=== PATIENT | male | born 1995 | race African-American/Black ===

== ENCOUNTER 2018-10-27 11:22 | Inpatient (IN) | payer SELFPAY ==
[~2018-10-27] VITALS: Ht 182.9 cm; Wt 75.0 kg
--- NOTE | 2018-10-27 11:52 | RAD ---
Portable upright chest x-ray without comparison for altered mental status. FINDINGS: Lungs are clear. Cardiomediastinum is grossly unremarkable. No significant soft tissue or osseous abnormalities. IMPRESSION: 1. Normal chest x-ray. Electronically signed by: Espinoza Mcdonough MD (10/27/2018 11:49 AM) [id number]
--- NOTE | 2018-10-27 12:00 | RAD ---
EXAM: Head CT without contrast. HISTORY: Altered mental status. TECHNIQUE: Computed tomographic images of the head were obtained without contrast. *One or more of the following individualized dose reduction techniques were utilized for this examination: 1. Automated exposure control. 2. Adjustment of the mA and/or kV according to patient size. 3. Use of iterative reconstruction technique. COMPARISON: None. FINDINGS: The exam is slightly limited due to motion. There is no acute or subacute extra-axial or intraparenchymal hemorrhage. There is no mass effect or midline shift. There is no hydrocephalus. The edge-white matter differentiation pattern is intact. The visualized portions of the orbits, paranasal sinuses and mastoid air cells are unremarkable. No suspicious calvarial lesion is seen. IMPRESSION: No acute intracranial findings. Electronically signed by: Neva Connelly MD (10/27/2018 11:57 AM) [place] [id number]
[2018-10-27] MEDS ORDERED: ZIPRASIDONE IM 20 MG VIAL. IM ONE (12:15)
--- NOTE | 2018-10-27 14:05 | PHYS DOC ---
Past Medical History Past Medical History: Unknown Additional Past Medical Histor: [place] Past Surgical History: Other Additional Past Surgical Histo: UNKNOWN Additional Information: UNKNOWN Alcohol Use: None Drug Use: Other Social History Narrative: UNKNOWN Adult General Chief Complaint Chief Complaint: ALTERED MENTAL STATUS HPI HPI Patient is a 22 year old male who presents with male with unknown medical history who presents to the ED today to be evaluated by EMS for altered mental status. EMS states they were called because patient was found walking on [address] [place] [address] in the rain he appeared altered. Patient is not giving us any information. He is awake and alert to self but will not give us his name or any further information. Review of Systems Review of Systems Constitutional: VAHE Eyes: VAHE HENT: VAHE Respiratory: VAHE Cardiovascular: VAHE GI: VAHE : VAHE Musculoskeletal:VAHE Integument: VAHE Neurologic: Altered mental status All other systems were reviewed and found to be within normal limits, except as documented in this note. Current Medications Current Medications Current Medications Medications (Trade) Dose Ordered Sig/Chu Start Time Stop Time Status Last Admin Dose Admin Ziprasidone (Geodon Im) 20 mg 1X ONCE 10/27/18 12:15 10/27/18 12:16 DC 10/27/18 12:18 20 MG Allergies Allergies Allergies Coded Allergies Type Severity Reaction Last Updated Verified Unable to Assess 10/27/18 No Physical Exam Physical Exam Constitutional: Well developed, well nourished, no acute distress, non-toxic appearance. [] HENT: Normocephalic, bilateral external ears normal, oropharynx moist, no oral exudates, nose normal. [] Eyes: PERRLA, EOMI, conjunctiva normal, no discharge. [] Neck: Normal range of motion, no tenderness, supple, no stridor. [] Cardiovascular:Heart rate regular rhythm, no murmur [] Lungs & Thorax: Bilateral breath sounds clear to auscultation [] Abdomen: Bowel sounds normal, soft, no tenderness, no masses, no pulsatile m asses. [] Skin: wet covered in rain water, no rash Back: No tenderness, Extremities: No tenderness, no cyanosis, no clubbing, ROM intact, no edema. [] Neurologic: Alert and oriented X 1, Psychologic: Flat appears to be intoxicated Current Patient Data Vital Signs Vital Signs Date Time Temp Pulse Resp B/P (MAP) Pulse Ox O2 Delivery O2 Flow Rate FiO2 10/27/18 11:22 97.0 68 18 153/74 (100) 97 Room Air 97.0 EKG EKG [address] Godwin sinus tachycardia HR 124 no STEMI[] Radiology/Procedures Radiology/Procedures [] Course & Med Decision Making Course & Med Decision Making Pertinent Labs and Imaging studies reviewed. (See chart for details) This is approximately 20-year-old male patient who presents the ED today to be evaluated for altered mental status. Patient will not give us his name or any further information. Patient was found walking in [facility] in the rain, and was alt ered. Patient became combative in the ED refusing care but stays confused and unsafe to go home, security was called, and he was given Geodon he calmed down and slept Consulted with Dr. Irwin who accepted patient for admission PAT routine consult placed. I spoke to mother, she stated patient has bipolar and he has voices. She stated patient has had psychotic symptoms for the last 3 weeks and needs to be sent to a psych facility. She stated patient is usually noncompliant a very had to work with especially when he is in the hospital. Member of the PAT team in the ED arranging for patient's care. Patient be admitted in the meantime Dragon Disclaimer Dragon Disclaimer This electronic medical record was generated, in whole or in part, using a voice recognition dictation system. Departure Departure Impression: Primary Impression: Altered mental status Additional Impression: Psychosis Disposition: ADMITTED INPATIENT Condition: STABLE Referrals: UNKNOWN PCP NAME (PCP) Problem Qualifiers Primary Impression: Altered mental status Altered mental status type: unspecified Qualified Codes: R41.82 - Altered mental status, unspecified Additional Impression: Psychosis Psychosis type: unspecified psychosis type Qualified Codes: F29 - Unspecified psychosis not due to a substance or known physiological condition AVANI CRAFT [employer]ICE [employer] Oct 27, 2018 14:05
[2018-10-27] MEDS ORDERED: ONDANSETRON PF 4 MG/2 ML VIAL. IV PRN (15:00)
[2018-10-27] MEDS ORDERED: HALOPERIDOL LACTATE 5 MG/ML VIAL. IVP ONE (17:00)
[2018-10-27 17:19] LABS: BILIRUBIN,URINE SMALL (NEG); CLARITY,URINE CLEAR; NITRITE,URINE NEGATIVE (NEG); PH,URINE 5.5; PROTEIN,URINE 30 mg/dL (NEG-TRACE)
[2018-10-27 17:33] LABS: BACTERIA,URINE 0 /HPF (0-FEW); COLOR,URINE DK YELLOW; HYALINE CASTS, URINE OCCASIONAL /HPF; RBC,URINE 0 /HPF (0-2); SQUAMOUS EPITHELIAL CELL,UR OCC /LPF; WBC,URINE 0 /HPF (0-4)
[2018-10-27 17:35] LABS: CALCIUM 10.2 mg/dL (8.5-10.1); CREATININE 1.3 mg/dL (0.7-1.3); GFR 84.3; POTASSIUM 5.4 mmol/L (3.5-5.1)
[2018-10-27 17:36] LABS: BARBITURATES NEG (NEG); BENZODIAZEPINES NEG (NEG); CANNABINOIDS POS (NEG); COCAINE NEG (NEG); METHADONE NEG (NEG); OPIATES NEG (NEG); PHENCYCLIDINE NEG (NEG)
[2018-10-27 17:38] LABS: ALBUMIN 5.1 g/dL (3.4-5.0); ALBUMIN/GLOBULIN RATIO 1.3 (1.0-1.7); TOTAL BILIRUBIN 3.4 mg/dL (0.2-1.0); TOTAL PROTEIN 9.1 g/dL (6.4-8.2)
[2018-10-27 17:39] LABS: ACETAMIN < 2 mcg/ml (10-30); ETHANOL < 10 mg/dL (0-10); SALIC < 2.8 mg/dL (2.8-20.0)
[2018-10-27 17:39] LABS: AMPHETAMINE/METHAMPHETAMINE NEG (NEG)
[2018-10-27 17:45] LABS: BASO % 0 % (0-3); EOS % 0 % (0-3); HEMATOCRIT 48.8 % (39.0-53.0); HEMOGLOBIN 16.3 g/dL (13.0-17.5); LYMPH # 2.4 x10^3/uL (1.0-4.8); LYMPH % 27 % (24-48); MEAN CORPUSCULAR HEMOGLOBIN 28 pg (25-35); MEAN CORPUSCULAR HGB CONC 33 g/dL (31-37); MEAN CORPUSCULAR VOLUME 83 fL (79-100); MONO # 0.9 x10^3/uL (0.0-1.1); MONO % 10 % (0-9); NEUT # 5.6 x10^3/uL (1.8-7.7); NEUT % 62 % (31-73); PLATELET COUNT 164 x10^3/uL (140-400); RED BLOOD COUNT 5.86 x10^6/uL (4.30-5.70); RED CELL DISTRIBUTION WIDTH 12.7 % (11.5-14.5); WHITE BLOOD COUNT 8.9 x10^3/uL (4.0-11.0)
--- NOTE | 2018-10-27 18:06 | NUR ---
Woody just arrived from ED via W/C w/ AMS. He is sleepingand has auditory hallucinations @ times. HAs not made any needs known.
[2018-10-27 18:34] VITALS: BP 119/79
--- NOTE | 2018-10-27 18:37 | PDOC1 ---
History and Physical Date of Admission Date of Admission DATE: 10/27/18 TIME: 18:34 Source Source: Unable to obtain due to History of Present Illness History of Present Illness Woody is a 22 year old male admit for acute confusion. Found by EMS, he didnt know where he is or who he was. He was Ted Sorenson for a feqw hours before his mother was found and discussed his PMH. EMS states they were called because patient was found walking on [address] [place] [address] in the rain he appeared altered. Patient is not giving us any information. He is awake and alert to self but will not give us his name or any further information. Past Medical History Cardiovascular: No pertinent hx Pulmonary: No pertinent hx Psych: Bipolar Social History Smoke: No ALCOHOL: none Current Problem List Problem List Problems Medical Problems: (1) Altered mental status Status: Acute (2) Psychosis Status: Acute Current Medications Current Medications Current Medications Ziprasidone (Geodon Im) 20 mg 1X ONCE IM Last administered on 10/27/18at 12:18; Start 10/27/18 at 12:15; Stop 10/27/18 at 12:16; Status DC Ondansetron HCl (Zofran) 4 mg PRN Q8HRS PRN IV NAUSEA/VOMITING; Start 10/27/18 at 15:00; Stop 10/28/18 at 14:59 Haloperidol Lactate (Haldol Inj) 5 mg 1X ONCE IVP Last administered on 10/27/18at 16:58; Start 10/27/18 at 17:00; Stop 10/27/18 at 17:01; Status DC Allergies Allergies: Coded Allergies: Unable to Assess (Unverified , 10/27/18) ROS Review of System unable, pt does not follow questions Physical Exam General: Alert, mild distress, Other (not oriented) HEENT: Atraumatic, PERRLA, EOMI Lungs: Normal air movement Heart: no gallops, no murmurs Extremities: No cyanosis, No edema Skin: No breakdown, No significant lesion Neuro: Normal tone, Sensation intact, Cranial nerves 3-12 NL Vitals Vitals Vital Signs Date Time Temp Pulse Resp B/P (MAP) Pulse Ox O2 Delivery O2 Flow Rate FiO2 10/27/18 17:00 112 18 99 10/27/18 14:58 97.8 97.8 10/27/18 11:22 153/74 (100) Room Air Labs Labs Laboratory Tests Test 10/27/18 16:59 10/27/18 17:11 10/27/18 17:35 Sodium Level 140 mmol/L (136-145) Potassium Level 5.4 mmol/L (3.5-5.1) Chloride Level 102 mmol/L (98-107) Carbon Dioxide Level 24 mmol/L (21-32) Anion Gap 14 (6-14) Blood Urea Nitrogen 14 mg/dL (8-26) Creatinine 1.3 mg/dL (0.7-1.3) Estimated GFR (Cockcroft-Gault) 84.3 BUN/Creatinine Ratio 11 (6-20) Glucose Level 76 mg/dL (70-99) Calcium Level 10.2 mg/dL (8.5-10.1) Magnesium Level 2.0 mg/dL (1.8-2.4) Total Bilirubin 3.4 mg/dL (0.2-1.0) Aspartate Amino Transf (AST/SGOT) 28 U/L (15-37) Alanine Aminotransferase (ALT/SGPT) 22 U/L (16-63) Alkaline Phosphatase 52 U/L (46-116) Total Protein 9.1 g/dL (6.4-8.2) Albumin 5.1 g/dL (3.4-5.0) Albumin/Globulin Ratio 1.3 (1.0-1.7) Salicylates Level < 2.8 mg/dL (2.8-20.0) Salicylate Last Dose Date Unk Salicylate Last Dose Time Unk Acetaminophen Level < 2 mcg/ml (10-30) Acetaminophen Last Dose Date Unk Acetaminophen Last Dose Time Unk Ethyl Alcohol Level < 10 mg/dL (0-10) Urine Collection Type Void Urine Color Dk yellow Urine Clarity Clear Urine pH 5.5 Urine Specific Meredith >=1.030 Urine Protein 30 mg/dL (NEG-TRACE) Urine Glucose (UA) Negative mg/dL (NEG) Urine Ketones (Stick) 15 mg/dL (NEG) Urine Blood Negative (NEG) Urine Nitrite Negative (NEG) Urine Bilirubin Small (NEG) Urine Urobilinogen Dipstick 1.0 mg/dL (0.2 mg/dL) Urine Leukocyte Esterase Negative (NEG) Urine RBC 0 /HPF (0-2) Urine WBC 0 /HPF (0-4) Urine Squamous Epithelial Cells Occ /LPF Urine Bacteria 0 /HPF (0-FEW) Urine Hyaline Casts Occasional /HPF Urine Mucus Marked /LPF Urine Opiates Screen Neg (NEG) Urine Methadone Screen Neg (NEG) Urine Barbiturates Neg (NEG) Urine Phencyclidine Screen Neg (NEG) Urine Amphetamine/Methamphetamine Neg (NEG) Urine Benzodiazepines Screen Neg (NEG) Urine Cocaine Screen Neg (NEG) Urine Cannabinoids Screen Pos (NEG) Urine Ethyl Alcohol Neg (NEG) White Blood Count 8.9 x10^3/uL (4.0-11.0) Red Blood Count 5.86 x10^6/uL (4.30-5.70) Hemoglobin 16.3 g/dL (13.0-17.5) Hematocrit 48.8 % (39.0-53.0) Mean Corpuscular Volume 83 fL (79-100) Mean Corpuscular Hemoglobin 28 pg (25-35) Mean Corpuscular Hemoglobin Concent 33 g/dL (31-37) Red Cell Distribution Width 12.7 % (11.5-14.5) Platelet Count 164 x10^3/uL (140-400) Neutrophils (%) (Auto) 62 % (31-73) Lymphocytes (%) (Auto) 27 % (24-48) Monocytes (%) (Auto) 10 % (0-9) Eosinophils (%) (Auto) 0 % (0-3) Basophils (%) (Auto) 0 % (0-3) Neutrophils # (Auto) 5.6 x10^3/uL (1.8-7.7) Lymphocytes # (Auto) 2.4 x10^3/uL (1.0-4.8) Monocytes # (Auto) 0.9 x10^3/uL (0.0-1.1) Eosinophils # (Auto) 0.0 x10^3/uL (0.0-0.7) Basophils # (Auto) 0.0 x10^3/uL (0.0-0.2) Laboratory Tests Test 10/27/18 16:59 10/27/18 17:11 10/27/18 17:35 Sodium Level 140 mmol/L (136-145) Potassium Level 5.4 mmol/L (3.5-5.1) Chloride Level 102 mmol/L (98-107) Carbon Dioxide Level 24 mmol/L (21-32) Anion Gap 14 (6-14) Blood Urea Nitrogen 14 mg/dL (8-26) Creatinine 1.3 mg/dL (0.7-1.3) Estimated GFR (Cockcroft-Gault) 84.3 BUN/Creatinine Ratio 11 (6-20) Glucose Level 76 mg/dL (70-99) Calcium Level 10.2 mg/dL (8.5-10.1) Magnesium Level 2.0 mg/dL (1.8-2.4) Total Bilirubin 3.4 mg/dL (0.2-1.0) Aspartate Amino Transf (AST/SGOT) 28 U/L (15-37) Alanine Aminotransferase (ALT/SGPT) 22 U/L (16-63) Alkaline Phosphatase 52 U/L (46-116) Total Protein 9.1 g/dL (6.4-8.2) Albumin 5.1 g/dL (3.4-5.0) Albumin/Globulin Ratio 1.3 (1.0-1.7) Salicylates Level < 2.8 mg/dL (2.8-20.0) Salicylate Last Dose Date Unk Salicylate Last Dose Time Unk Acetaminophen Level < 2 mcg/ml (10-30) Acetaminophen Last Dose Date Unk Acetaminophen Last Dose Time Unk Ethyl Alcohol Level < 10 mg/dL (0-10) Urine Collection Type Void Urine Color Dk yellow Urine Clarity Clear Urine pH 5.5 Urine Specific Meredith >=1.030 Urine Protein 30 mg/dL (NEG-TRACE) Urine Glucose (UA) Negative mg/dL (NEG) Urine Ketones (Stick) 15 mg/dL (NEG) Urine Blood Negative (NEG) Urine Nitrite Negative (NEG) Urine Bilirubin Small (NEG) Urine Urobilinogen Dipstick 1.0 mg/dL (0.2 mg/dL) Urine Leukocyte Esterase Negative (NEG) Urine RBC 0 /HPF (0-2) Urine WBC 0 /HPF (0-4) Urine Squamous Epithelial Cells Occ /LPF Urine Bacteria 0 /HPF (0-FEW) Urine Hyaline Casts Occasional /HPF Urine Mucus Marked /LPF Urine Opiates Screen Neg (NEG) Urine Methadone Screen Neg (NEG) Urine Barbiturates Neg (NEG) Urine Phencyclidine Screen Neg (NEG) Urine Amphetamine/Methamphetamine Neg (NEG) Urine Benzodiazepines Screen Neg (NEG) Urine Cocaine Screen Neg (NEG) Urine Cannabinoids Screen Pos (NEG) Urine Ethyl Alcohol Neg (NEG) White Blood Count 8.9 x10^3/uL (4.0-11.0) Red Blood Count 5.86 x10^6/uL (4.30-5.70) Hemoglobin 16.3 g/dL (13.0-17.5) Hematocrit 48.8 % (39.0-53.0) Mean Corpuscular Volume 83 fL (79-100) Mean Corpuscular Hemoglobin 28 pg (25-35) Mean Corpuscular Hemoglobin Concent 33 g/dL (31-37) Red Cell Distribution Width 12.7 % (11.5-14.5) Platelet Count 164 x10^3/uL (140-400) Neutrophils (%) (Auto) 62 % (31-73) Lymphocytes (%) (Auto) 27 % (24-48) Monocytes (%) (Auto) 10 % (0-9) Eosinophils (%) (Auto) 0 % (0-3) Basophils (%) (Auto) 0 % (0-3) Neutrophils # (Auto) 5.6 x10^3/uL (1.8-7.7) Lymphocytes # (Auto) 2.4 x10^3/uL (1.0-4.8) Monocytes # (Auto) 0.9 x10^3/uL (0.0-1.1) Eosinophils # (Auto) 0.0 x10^3/uL (0.0-0.7) Basophils # (Auto) 0.0 x10^3/uL (0.0-0.2) VTE Prophylaxis Ordered VTE Prophylaxis Devices: No VTE Pharmacological Prophylaxi: Yes Assessment/Plan Assessment/Plan acute metabolic or toxic encephalopathy bipolar disorder schizophrenia admit BECKY KHAN MD Oct 27, 2018 18:37
[2018-10-27] MEDS ORDERED: IV NORMAL SALINE 1000ML BAG 1,000 ML IV ONE (18:45)
[2018-10-27 22:51] VITALS: BP 134/72
[2018-10-28 03:00] VITALS: BP 128/74
--- NOTE | 2018-10-28 05:32 | EKG ---
[facility] [address] [place] [address] Test Date: 2018-10-27 Test Time: 14:55:17 Pat Name: KATIA MACK Department: Room: 506 1 Gender: M Associate Director Financial Aid: : 1995 Requested By: AVANI CRAFT Order Number: [id number] Reading MD: Vahe El MD Measurements Intervals [place] Rate: 124 P: 63 VA: 114 QRS: 38 QRSD: 88 T: 66 QT: 296 QTc: 429 Interpretive Statements SINUS TACHYCARDIA NON-SPECIFIC ST/T CHANGES Electronically Signed On 10-28-2018 18:55:57 CDT by Vahe El MD
--- NOTE | 2018-10-28 06:45 | NUR ---
Pt. woke up this am and seems more alert and oriented. Able to state he does not have any allergies. Continues with 1:1. Report given to Halina MARIO.
[2018-10-28 07:00] VITALS: BP 128/64
[2018-10-28 11:00] VITALS: BP 149/87
--- NOTE | 2018-10-28 11:10 | PDOC ---
PROGRESS NOTES History of Present Illness History of Present Illness VTE Prophylaxis Ordered VTE Prophylaxis Devices: No VTE Pharmacological Prophylaxi: Yes Assessment/Plan Assessment/Plan acute metabolic or toxic encephalopathy on ct head , There is no acute or subacute extra-axial or intraparenchymal hemorrhage. There is no mass effect or midline shift. There is no hydrocephalus. bipolar disorder schizophrenia thc abuse admit needs sitter elopement risk dvt prophylaxis placement prn haldol 27 min pt exam, chart review, > 50% of time spent with exam, chart review, pt care coordination Vitals Vitals Vital Signs Date Time Temp Pulse Resp B/P (MAP) Pulse Ox O2 Delivery O2 Flow Rate FiO2 10/28/18 11:00 92 18 149/87 (107) 99 Room Air 10/28/18 07:00 97.8 97.8 Physical Exam General: Alert, Cooperative, mild distress, Other (not oriented) Heart: Regular rate, Normal S1, Normal S2 Lungs: Clear Abdomen: Soft Extremities: No clubbing, No cyanosis, No edema Skin: No breakdown, No significant lesion Labs LABS EXAM: Head CT without contrast. HISTORY: Altered mental status. TECHNIQUE: Computed tomographic images of the head were obtained without contrast. *One or more of the following individualized dose reduction techniques were utilized for this examination: 1. Automated exposure control. 2. Adjustment of the mA and/or kV according to patient size. 3. Use of iterative reconstruction technique. COMPARISON: None. FINDINGS: The exam is slightly limited due to motion. There is no acute or subacute extra-axial or intraparenchymal hemorrhage. There is no mass effect or midline shift. There is no hydrocephalus. The edge-white matter differentiation pattern is intact. The visualized portions of the orbits, paranasal sinuses and mastoid air cells are unremarkable. No suspicious calvarial lesion is seen. IMPRESSION: No acute intracranial findings. Electronically signed by: Neva Connelly MD (10/27/2018 11:57 AM) [facility] Laboratory Tests Test 10/27/18 16:59 10/27/18 17:11 10/27/18 17:35 Sodium Level 140 mmol/L (136-145) Potassium Level 5.4 mmol/L (3.5-5.1) Chloride Level 102 mmol/L (98-107) Carbon Dioxide Level 24 mmol/L (21-32) Anion Gap 14 (6-14) Blood Urea Nitrogen 14 mg/dL (8-26) Creatinine 1.3 mg/dL (0.7-1.3) Estimated GFR (Cockcroft-Gault) 84.3 BUN/Creatinine Ratio 11 (6-20) Glucose Level 76 mg/dL (70-99) Calcium Level 10.2 mg/dL (8.5-10.1) Magnesium Level 2.0 mg/dL (1.8-2.4) Total Bilirubin 3.4 mg/dL (0.2-1.0) Aspartate Amino Transf (AST/SGOT) 28 U/L (15-37) Alanine Aminotransferase (ALT/SGPT) 22 U/L (16-63) Alkaline Phosphatase 52 U/L (46-116) Total Protein 9.1 g/dL (6.4-8.2) Albumin 5.1 g/dL (3.4-5.0) Albumin/Globulin Ratio 1.3 (1.0-1.7) Salicylates Level < 2.8 mg/dL (2.8-20.0) Salicylate Last Dose Date Unk Salicylate Last Dose Time Unk Acetaminophen Level < 2 mcg/ml (10-30) Acetaminophen Last Dose Date Unk Acetaminophen Last Dose Time Unk Ethyl Alcohol Level < 10 mg/dL (0-10) Urine Collection Type Void Urine Color Dk yellow Urine Clarity Clear Urine pH 5.5 Urine Specific [place] >=1.030 Urine Protein 30 mg/dL (NEG-TRACE) Urine Glucose (UA) Negative mg/dL (NEG) Urine Ketones (Stick) 15 mg/dL (NEG) Urine Blood Negative (NEG) Urine Nitrite Negative (NEG) Urine Bilirubin Small (NEG) Urine Urobilinogen Dipstick 1.0 mg/dL (0.2 mg/dL) Urine Leukocyte Esterase Negative (NEG) Urine RBC 0 /HPF (0-2) Urine WBC 0 /HPF (0-4) Urine Squamous Epithelial Cells Occ /LPF Urine Bacteria 0 /HPF (0-FEW) Urine Hyaline Casts Occasional /HPF Urine Mucus Marked /LPF Urine Opiates Screen Neg (NEG) Urine Methadone Screen Neg (NEG) Urine Barbiturates Neg (NEG) Urine Phencyclidine Screen Neg (NEG) Urine Amphetamine/Methamphetamine Neg (NEG) Urine Benzodiazepines Screen Neg (NEG) Urine Cocaine Screen Neg (NEG) Urine Cannabinoids Screen Pos (NEG) Urine Ethyl Alcohol Neg (NEG) White Blood Count 8.9 x10^3/uL (4.0-11.0) Red Blood Count 5.86 x10^6/uL (4.30-5.70) Hemoglobin 16.3 g/dL (13.0-17.5) Hematocrit 48.8 % (39.0-53.0) Mean Corpuscular Volume 83 fL (79-100) Mean Corpuscular Hemoglobin 28 pg (25-35) Mean Corpuscular Hemoglobin Concent 33 g/dL (31-37) Red Cell Distribution Width 12.7 % (11.5-14.5) Platelet Count 164 x10^3/uL (140-400) Neutrophils (%) (Auto) 62 % (31-73) Lymphocytes (%) (Auto) 27 % (24-48) Monocytes (%) (Auto) 10 % (0-9) Eosinophils (%) (Auto) 0 % (0-3) Basophils (%) (Auto) 0 % (0-3) Neutrophils # (Auto) 5.6 x10^3/uL (1.8-7.7) Lymphocytes # (Auto) 2.4 x10^3/uL (1.0-4.8) Monocytes # (Auto) 0.9 x10^3/uL (0.0-1.1) Eosinophils # (Auto) 0.0 x10^3/uL (0.0-0.7) Basophils # (Auto) 0.0 x10^3/uL (0.0-0.2) Assessment and Plan Assessmemt and Plan Problems Medical Problems: (1) Altered mental status Status: Acute (2) Psychosis Status: Acute Comment Review of Relevant I have reviewed the following items astrid (where applicable) has been applied. Labs Laboratory Tests Test 10/27/18 16:59 10/27/18 17:11 10/27/18 17:35 Sodium Level 140 mmol/L (136-145) Potassium Level 5.4 mmol/L (3.5-5.1) Chloride Level 102 mmol/L (98-107) Carbon Dioxide Level 24 mmol/L (21-32) Anion Gap 14 (6-14) Blood Urea Nitrogen 14 mg/dL (8-26) Creatinine 1.3 mg/dL (0.7-1.3) Estimated GFR (Cockcroft-Gault) 84.3 BUN/Creatinine Ratio 11 (6-20) Glucose Level 76 mg/dL (70-99) Calcium Level 10.2 mg/dL (8.5-10.1) Magnesium Level 2.0 mg/dL (1.8-2.4) Total Bilirubin 3.4 mg/dL (0.2-1.0) Aspartate Amino Transf (AST/SGOT) 28 U/L (15-37) Alanine Aminotransferase (ALT/SGPT) 22 U/L (16-63) Alkaline Phosphatase 52 U/L (46-116) Total Protein 9.1 g/dL (6.4-8.2) Albumin 5.1 g/dL (3.4-5.0) Albumin/Globulin Ratio 1.3 (1.0-1.7) Salicylates Level < 2.8 mg/dL (2.8-20.0) Salicylate Last Dose Date Unk Salicylate Last Dose Time Unk Acetaminophen Level < 2 mcg/ml (10-30) Acetaminophen Last Dose Date Unk Acetaminophen Last Dose Time Unk Ethyl Alcohol Level < 10 mg/dL (0-10) Urine Collection Type Void Urine Color Dk yellow Urine Clarity Clear Urine pH 5.5 Urine Specific [place] >=1.030 Urine Protein 30 mg/dL (NEG-TRACE) Urine Glucose (UA) Negative mg/dL (NEG) Urine Ketones (Stick) 15 mg/dL (NEG) Urine Blood Negative (NEG) Urine Nitrite Negative (NEG) Urine Bilirubin Small (NEG) Urine Urobilinogen Dipstick 1.0 mg/dL (0.2 mg/dL) Urine Leukocyte Esterase Negative (NEG) Urine RBC 0 /HPF (0-2) Urine WBC 0 /HPF (0-4) Urine Squamous Epithelial Cells Occ /LPF Urine Bacteria 0 /HPF (0-FEW) Urine Hyaline Casts Occasional /HPF Urine Mucus Marked /LPF Urine Opiates Screen Neg (NEG) Urine Methadone Screen Neg (NEG) Urine Barbiturates Neg (NEG) Urine Phencyclidine Screen Neg (NEG) Urine Amphetamine/Methamphetamine Neg (NEG) Urine Benzodiazepines Screen Neg (NEG) Urine Cocaine Screen Neg (NEG) Urine Cannabinoids Screen Pos (NEG) Urine Ethyl Alcohol Neg (NEG) White Blood Count 8.9 x10^3/uL (4.0-11.0) Red Blood Count 5.86 x10^6/uL (4.30-5.70) Hemoglobin 16.3 g/dL (13.0-17.5) Hematocrit 48.8 % (39.0-53.0) Mean Corpuscular Volume 83 fL (79-100) Mean Corpuscular Hemoglobin 28 pg (25-35) Mean Corpuscular Hemoglobin Concent 33 g/dL (31-37) Red Cell Distribution Width 12.7 % (11.5-14.5) Platelet Count 164 x10^3/uL (140-400) Neutrophils (%) (Auto) 62 % (31-73) Lymphocytes (%) (Auto) 27 % (24-48) Monocytes (%) (Auto) 10 % (0-9) Eosinophils (%) (Auto) 0 % (0-3) Basophils (%) (Auto) 0 % (0-3) Neutrophils # (Auto) 5.6 x10^3/uL (1.8-7.7) Lymphocytes # (Auto) 2.4 x10^3/uL (1.0-4.8) Monocytes # (Auto) 0.9 x10^3/uL (0.0-1.1) Eosinophils # (Auto) 0.0 x10^3/uL (0.0-0.7) Basophils # (Auto) 0.0 x10^3/uL (0.0-0.2) Laboratory Tests Test 10/27/18 16:59 10/27/18 17:11 10/27/18 17:35 Sodium Level 140 mmol/L (136-145) Potassium Level 5.4 mmol/L (3.5-5.1) Chloride Level 102 mmol/L (98-107) Carbon Dioxide Level 24 mmol/L (21-32) Anion Gap 14 (6-14) Blood Urea Nitrogen 14 mg/dL (8-26) Creatinine 1.3 mg/dL (0.7-1.3) Estimated GFR (Cockcroft-Gault) 84.3 BUN/Creatinine Ratio 11 (6-20) Glucose Level 76 mg/dL (70-99) Calcium Level 10.2 mg/dL (8.5-10.1) Magnesium Level 2.0 mg/dL (1.8-2.4) Total Bilirubin 3.4 mg/dL (0.2-1.0) Aspartate Amino Transf (AST/SGOT) 28 U/L (15-37) Alanine Aminotransferase (ALT/SGPT) 22 U/L (16-63) Alkaline Phosphatase 52 U/L (46-116) Total Protein 9.1 g/dL (6.4-8.2) Albumin 5.1 g/dL (3.4-5.0) Albumin/Globulin Ratio 1.3 (1.0-1.7) Salicylates Level < 2.8 mg/dL (2.8-20.0) Salicylate Last Dose Date Unk Salicylate Last Dose Time Unk Acetaminophen Level < 2 mcg/ml (10-30) Acetaminophen Last Dose Date Unk Acetaminophen Last Dose Time Unk Ethyl Alcohol Level < 10 mg/dL (0-10) Urine Collection Type Void Urine Color Dk yellow Urine Clarity Clear Urine pH 5.5 Urine Specific [place] >=1.030 Urine Protein 30 mg/dL (NEG-TRACE) Urine Glucose (UA) Negative mg/dL (NEG) Urine Ketones (Stick) 15 mg/dL (NEG) Urine Blood Negative (NEG) Urine Nitrite Negative (NEG) Urine Bilirubin Small (NEG) Urine Urobilinogen Dipstick 1.0 mg/dL (0.2 mg/dL) Urine Leukocyte Esterase Negative (NEG) Urine RBC 0 /HPF (0-2) Urine WBC 0 /HPF (0-4) Urine Squamous Epithelial Cells Occ /LPF Urine Bacteria 0 /HPF (0-FEW) Urine Hyaline Casts Occasional /HPF Urine Mucus Marked /LPF Urine Opiates Screen Neg (NEG) Urine Methadone Screen Neg (NEG) Urine Barbiturates Neg (NEG) Urine Phencyclidine Screen Neg (NEG) Urine Amphetamine/Methamphetamine Neg (NEG) Urine Benzodiazepines Screen Neg (NEG) Urine Cocaine Screen Neg (NEG) Urine Cannabinoids Screen Pos (NEG) Urine Ethyl Alcohol Neg (NEG) White Blood Count 8.9 x10^3/uL (4.0-11.0) Red Blood Count 5.86 x10^6/uL (4.30-5.70) Hemoglobin 16.3 g/dL (13.0-17.5) Hematocrit 48.8 % (39.0-53.0) Mean Corpuscular Volume 83 fL (79-100) Mean Corpuscular Hemoglobin 28 pg (25-35) Mean Corpuscular Hemoglobin Concent 33 g/dL (31-37) Red Cell Distribution Width 12.7 % (11.5-14.5) Platelet Count 164 x10^3/uL (140-400) Neutrophils (%) (Auto) 62 % (31-73) Lymphocytes (%) (Auto) 27 % (24-48) Monocytes (%) (Auto) 10 % (0-9) Eosinophils (%) (Auto) 0 % (0-3) Basophils (%) (Auto) 0 % (0-3) Neutrophils # (Auto) 5.6 x10^3/uL (1.8-7.7) Lymphocytes # (Auto) 2.4 x10^3/uL (1.0-4.8) Monocytes # (Auto) 0.9 x10^3/uL (0.0-1.1) Eosinophils # (Auto) 0.0 x10^3/uL (0.0-0.7) Basophils # (Auto) 0.0 x10^3/uL (0.0-0.2) Medications Current Medications Ziprasidone (Geodon Im) 20 mg 1X ONCE IM Last administered on 10/27/18at 12:18; Start 10/27/18 at 12:15; Stop 10/27/18 at 12:16; Status DC Ondansetron HCl (Zofran) 4 mg PRN Q8HRS PRN IV NAUSEA/VOMITING; Start 10/27/18 at 15:00; Stop 10/28/18 at 14:59 Haloperidol Lactate (Haldol Inj) 5 mg 1X ONCE IVP Last administered on 10/27/18at 16:58; Start 10/27/18 at 17:00; Stop 10/27/18 at 17:01; Status DC Sodium Chloride 1,000 ml @ 125 mls/hr 1X ONCE IV Last administered on 10/27/18at 20:23; Start 10/27/18 at 18:45; Stop 10/28/18 at 02:44; Status DC Vitals/I & O Vital Sign - Last 24 Hours 10/27/18 10/27/18 10/27/18 10/27/18 11:22 14:00 14:58 15:00 Temp 97.0 97.8 97.0 97.8 Pulse 68 70 70 Resp 18 18 18 B/P (MAP) 153/74 (100) Pulse Ox 97 99 99 O2 Delivery Room Air 10/27/18 10/27/18 10/27/18 10/27/18 16:00 17:00 18:34 19:10 Temp 97.9 97.9 Pulse 72 112 64 Resp 18 18 17 B/P (MAP) 119/79 (92) Pulse Ox 99 99 98 O2 Delivery Room Air Room Air 10/27/18 10/28/18 10/28/18 10/28/18 22:51 03:00 07:00 07:30 Temp 97.4 97.7 97.8 97.4 97.7 97.8 Pulse 83 72 64 Resp 18 18 B/P (MAP) 134/72 (92) 128/74 (92) 128/64 (85) Pulse Ox 97 98 100 O2 Delivery Room Air Room Air Room Air Room Air 10/28/18 11:00 Pulse 92 Resp 18 B/P (MAP) 149/87 (107) Pulse Ox 99 O2 Delivery Room Air Intake and Output 10/27/18 10/27/18 10/28/18 15:00 23:00 07:00 Intake Total 360 ml 1880 ml Balance 360 ml 1880 ml QUETA CARLTON MD Oct 28, 2018 11:10
[2018-10-28] MEDS: ENOXAPARIN 40 MG/0.4 ML SYRINGE. SQ SCH (14:00)
--- NOTE | 2018-10-28 14:23 | NUR ---
PEGGY following pt for dc planning. Chart reviewed and discussed with RN. Pt was seen by PAT team yesterday and a referral was initiated for involuntary placement at OSH. PEGGY faxed clinicals to OSH. Acceptance and admission pending. Will continue to follow.
[2018-10-28 15:00] VITALS: BP 131/92
[2018-10-28 19:00] VITALS: BP 130/71
[2018-10-28 23:00] VITALS: BP 148/96
[2018-10-29 02:43] VITALS: BP 127/82
[2018-10-29 07:04] VITALS: BP 122/66
--- NOTE | 2018-10-29 08:17 | NUR ---
SW following pt. Discussed with RN and OSH had concerns about pt's labs yesterday. RN had ordered new labs today to check potassium level. Will continue to follow.
[2018-10-29 09:38] LABS: CALCIUM 8.9 mg/dL (8.5-10.1); CREATININE 1.2 mg/dL (0.7-1.3); GFR 92.5; POTASSIUM 3.6 mmol/L (3.5-5.1)
--- NOTE | 2018-10-29 10:16 | NUR ---
PEGGY following pt. Spoke with Brittany at OSH, phone: [phone], fax: [phone]. Updated labs and vitals faxed to OSH. Acceptance and admission pending. Will continue to follow.
[2018-10-29 11:08] VITALS: BP 135/73
--- NOTE | 2018-10-29 11:52 | PDOC ---
PROGRESS NOTES History of Present Illness History of Present Illness VTE Prophylaxis Ordered VTE Prophylaxis Devices: No VTE Pharmacological Prophylaxi: Yes Assessment/Plan Assessment/Plan acute metabolic or toxic encephalopathy on ct head , There is no acute or subacute extra-axial or intraparenchymal hemorrhage. There is no mass effect or midline shift. There is no hydrocephalus. bipolar disorder schizophrenia thc abuse admit needs sitter elopement risk dvt prophylaxis placement OSH ////DR MAYERS ACCEPTS BY PHONE TODAY VERBALLY prn haldol 37 min pt exam, chart review, > 50% of time spent with exam, chart review, pt care coordination Vitals Vitals Vital Signs Date Time Temp Pulse Resp B/P (MAP) Pulse Ox O2 Delivery O2 Flow Rate FiO2 10/29/18 11:08 97.8 82 18 135/73 (93) 100 Room Air 97.8 Physical Exam General: Alert, Cooperative, mild distress, Other (not oriented) Heart: Regular rate, Normal S1, Normal S2 Lungs: Clear Abdomen: Normal bowel sounds, Soft Extremities: No clubbing, No cyanosis, No edema Skin: No breakdown, No significant lesion Labs LABS Laboratory Tests Test 10/29/18 09:10 Sodium Level 143 mmol/L (136-145) Potassium Level 3.6 mmol/L (3.5-5.1) Chloride Level 105 mmol/L (98-107) Carbon Dioxide Level 29 mmol/L (21-32) Anion Gap 9 (6-14) Blood Urea Nitrogen 9 mg/dL (8-26) Creatinine 1.2 mg/dL (0.7-1.3) Estimated GFR (Cockcroft-Gault) 92.5 Glucose Level 104 mg/dL (70-99) Calcium Level 8.9 mg/dL (8.5-10.1) Assessment and Plan Assessmemt and Plan Problems Medical Problems: (1) Altered mental status Status: Acute (2) Psychosis Status: Acute Comment Review of Relevant I have reviewed the following items astrid (where applicable) has been applied. Labs Laboratory Tests Test 10/27/18 16:59 10/27/18 17:11 10/27/18 17:35 10/29/18 09:10 Sodium Level 140 mmol/L (136-145) 143 mmol/L (136-145) Potassium Level 5.4 mmol/L (3.5-5.1) 3.6 mmol/L (3.5-5.1) Chloride Level 102 mmol/L (98-107) 105 mmol/L (98-107) Carbon Dioxide Level 24 mmol/L (21-32) 29 mmol/L (21-32) Anion Gap 14 (6-14) 9 (6-14) Blood Urea Nitrogen 14 mg/dL (8-26) 9 mg/dL (8-26) Creatinine 1.3 mg/dL (0.7-1.3) 1.2 mg/dL (0.7-1.3) Estimated GFR (Cockcroft-Gault) 84.3 92.5 BUN/Creatinine Ratio 11 (6-20) Glucose Level 76 mg/dL (70-99) 104 mg/dL (70-99) Calcium Level 10.2 mg/dL (8.5-10.1) 8.9 mg/dL (8.5-10.1) Magnesium Level 2.0 mg/dL (1.8-2.4) Total Bilirubin 3.4 mg/dL (0.2-1.0) Aspartate Amino Transf (AST/SGOT) 28 U/L (15-37) Alanine Aminotransferase (ALT/SGPT) 22 U/L (16-63) Alkaline Phosphatase 52 U/L (46-116) Total Protein 9.1 g/dL (6.4-8.2) Albumin 5.1 g/dL (3.4-5.0) Albumin/Globulin Ratio 1.3 (1.0-1.7) Salicylates Level < 2.8 mg/dL (2.8-20.0) Salicylate Last Dose Date Unk Salicylate Last Dose Time Unk Acetaminophen Level < 2 mcg/ml (10-30) Acetaminophen Last Dose Date Unk Acetaminophen Last Dose Time Unk Ethyl Alcohol Level < 10 mg/dL (0-10) Urine Collection Type Void Urine Color Dk yellow Urine Clarity Clear Urine pH 5.5 Urine Specific [place] >=1.030 Urine Protein 30 mg/dL (NEG-TRACE) Urine Glucose (UA) Negative mg/dL (NEG) Urine Ketones (Stick) 15 mg/dL (NEG) Urine Blood Negative (NEG) Urine Nitrite Negative (NEG) Urine Bilirubin Small (NEG) Urine Urobilinogen Dipstick 1.0 mg/dL (0.2 mg/dL) Urine Leukocyte Esterase Negative (NEG) Urine RBC 0 /HPF (0-2) Urine WBC 0 /HPF (0-4) Urine Squamous Epithelial Cells Occ /LPF Urine Bacteria 0 /HPF (0-FEW) Urine Hyaline Casts Occasional /HPF Urine Mucus Marked /LPF Urine Opiates Screen Neg (NEG) Urine Methadone Screen Neg (NEG) Urine Barbiturates Neg (NEG) Urine Phencyclidine Screen Neg (NEG) Urine Amphetamine/Methamphetamine Neg (NEG) Urine Benzodiazepines Screen Neg (NEG) Urine Cocaine Screen Neg (NEG) Urine Cannabinoids Screen Pos (NEG) Urine Ethyl Alcohol Neg (NEG) White Blood Count 8.9 x10^3/uL (4.0-11.0) Red Blood Count 5.86 x10^6/uL (4.30-5.70) Hemoglobin 16.3 g/dL (13.0-17.5) Hematocrit 48.8 % (39.0-53.0) Mean Corpuscular Volume 83 fL (79-100) Mean Corpuscular Hemoglobin 28 pg (25-35) Mean Corpuscular Hemoglobin Concent 33 g/dL (31-37) Red Cell Distribution Width 12.7 % (11.5-14.5) Platelet Count 164 x10^3/uL (140-400) Neutrophils (%) (Auto) 62 % (31-73) Lymphocytes (%) (Auto) 27 % (24-48) Monocytes (%) (Auto) 10 % (0-9) Eosinophils (%) (Auto) 0 % (0-3) Basophils (%) (Auto) 0 % (0-3) Neutrophils # (Auto) 5.6 x10^3/uL (1.8-7.7) Lymphocytes # (Auto) 2.4 x10^3/uL (1.0-4.8) Monocytes # (Auto) 0.9 x10^3/uL (0.0-1.1) Eosinophils # (Auto) 0.0 x10^3/uL (0.0-0.7) Basophils # (Auto) 0.0 x10^3/uL (0.0-0.2) Laboratory Tests Test 10/29/18 09:10 Sodium Level 143 mmol/L (136-145) Potassium Level 3.6 mmol/L (3.5-5.1) Chloride Level 105 mmol/L (98-107) Carbon Dioxide Level 29 mmol/L (21-32) Anion Gap 9 (6-14) Blood Urea Nitrogen 9 mg/dL (8-26) Creatinine 1.2 mg/dL (0.7-1.3) Estimated GFR (Cockcroft-Gault) 92.5 Glucose Level 104 mg/dL (70-99) Calcium Level 8.9 mg/dL (8.5-10.1) Medications Current Medications Ziprasidone (Geodon Im) 20 mg 1X ONCE IM Last administered on 10/27/18at 12:18; Start 10/27/18 at 12:15; Stop 10/27/18 at 12:16; Status DC Ondansetron HCl (Zofran) 4 mg PRN Q8HRS PRN IV NAUSEA/VOMITING; Start 10/27/18 at 15:00; Stop 10/28/18 at 14:59; Status DC Haloperidol Lactate (Haldol Inj) 5 mg 1X ONCE IVP Last administered on 10/27/18at 16:58; Start 10/27/18 at 17:00; Stop 10/27/18 at 17:01; Status DC Sodium Chloride 1,000 ml @ 125 mls/hr 1X ONCE IV Last administered on 10/27/18at 20:23; Start 10/27/18 at 18:45; Stop 10/28/18 at 02:44; Status DC Enoxaparin Sodium (Lovenox 40mg Syringe) 40 mg Q24H SQ ; Start 10/28/18 at 14:00 Vitals/I & O Vital Sign - Last 24 Hours 10/28/18 10/28/18 10/28/18 10/28/18 15:00 19:00 20:00 23:00 Temp 98.1 97.5 97.9 98.1 97.5 97.9 Pulse 81 83 94 Resp 18 B/P (MAP) 131/92 (105) 130/71 (90) 148/96 (113) Pulse Ox 100 99 100 O2 Delivery Room Air Room Air Room Air Room Air 10/29/18 10/29/18 10/29/18 10/29/18 02:43 07:04 08:00 11:08 Temp 97.4 97.4 97.8 97.4 97.4 97.8 Pulse 85 81 82 Resp 18 18 18 B/P (MAP) 127/82 (97) 122/66 (84) 135/73 (93) Pulse Ox 100 100 100 O2 Delivery Room Air Room Air Room Air Room Air Intake and Output 10/28/18 10/28/18 10/29/18 14:59 22:59 06:59 Intake Total 160 ml 830 ml Balance 160 ml 830 ml QUEAT CARLTON MD Oct 29, 2018 11:52
--- NOTE | 2018-10-29 12:37 | PDOC3 ---
Discharge Summary Date of Admission: Oct 27, 2018 Date of Discharge: Oct 29, 2018 Follow-Up: 1-2 days Admitting Diagnosis comment: VTE Prophylaxis Ordered VTE Prophylaxis Devices: No VTE Pharmacological Prophylaxi: Yes Assessment/Plan Assessment/Plan acute metabolic or toxic encephalopathy on ct head , There is no acute or subacute extra-axial or intraparenchymal hemorrhage. There is no mass effect or midline shift. There is no hydrocephalus. bipolar disorder schizophrenia thc abuse admit needs sitter elopement risk dvt prophylaxis placement OSH ////DR MAYERS ACCEPTS BY PHONE TODAY VERBALLY 10/29 prn haldol 37 min pt exam, chart review, > 50% of time spent with exam, chart review, pt care coordination Vitals Vitals Vital Signs Date Time Temp Pulse Resp B/P (MAP) Pulse Ox O2 Delivery O2 Flow Rate FiO2 10/29/18 11:08 97.8 82 18 135/73 (93) 100 Room Air 97.8 Physical Exam General: Alert, Cooperative, mild distress, Other (not oriented) Heart: Regular rate, Normal S1, Normal S2 Lungs: Clear Abdomen: Normal bowel sounds, Soft Extremities: No clubbing, No cyanosis, No edema Skin: No breakdown, No significant lesion FINAL DIAGNOSIS Problems Medical Problems: (1) Altered mental status Status: Acute (2) Psychosis Status: Acute Brief Hospital Course Mr. Sanchez is a 22 old [sex] who presented with [ ] Discharge Medications Current Medications Ziprasidone (Geodon Im) 20 mg 1X ONCE IM Last administered on 10/27/18at 12:18; Start 10/27/18 at 12:15; Stop 10/27/18 at 12:16; Status DC Ondansetron HCl (Zofran) 4 mg PRN Q8HRS PRN IV NAUSEA/VOMITING; Start 10/27/18 at 15:00; Stop 10/28/18 at 14:59; Status DC Haloperidol Lactate (Haldol Inj) 5 mg 1X ONCE IVP Last administered on at 16:58; Start 10/27/18 at 17:00; Stop 10/27/18 at 17:01; Status DC Sodium Chloride 1,000 ml @ 125 mls/hr 1X ONCE IV Last administered on 10/27/18at 20:23; Start 10/27/18 at 18:45; Stop 10/28/18 at 02:44; Status DC Enoxaparin Sodium (Lovenox 40mg Syringe) 40 mg Q24H SQ ; Start 10/28/18 at 14:00 Vital Signs Vital Signs Date Time Temp Pulse Resp B/P (MAP) Pulse Ox O2 Delivery O2 Flow Rate FiO2 10/29/18 11:08 97.8 82 18 135/73 (93) 100 Room Air 97.8 Labs Laboratory Tests Test 10/27/18 16:59 10/27/18 17:11 10/27/18 17:35 10/29/18 09:10 Sodium Level 140 mmol/L (136-145) 143 mmol/L (136-145) Potassium Level 5.4 mmol/L (3.5-5.1) 3.6 mmol/L (3.5-5.1) Chloride Level 102 mmol/L (98-107) 105 mmol/L (98-107) Carbon Dioxide Level 24 mmol/L (21-32) 29 mmol/L (21-32) Anion Gap 14 (6-14) 9 (6-14) Blood Urea Nitrogen 14 mg/dL (8-26) 9 mg/dL (8-26) Creatinine 1.3 mg/dL (0.7-1.3) 1.2 mg/dL (0.7-1.3) Estimated GFR (Cockcroft-Gault) 84.3 92.5 BUN/Creatinine Ratio 11 (6-20) Glucose Level 76 mg/dL (70-99) 104 mg/dL (70-99) Calcium Level 10.2 mg/dL (8.5-10.1) 8.9 mg/dL (8.5-10.1) Magnesium Level 2.0 mg/dL (1.8-2.4) Total Bilirubin 3.4 mg/dL (0.2-1.0) Aspartate Amino Transf (AST/SGOT) 28 U/L (15-37) Alanine Aminotransferase (ALT/SGPT) 22 U/L (16-63) Alkaline Phosphatase 52 U/L (46-116) Total Protein 9.1 g/dL (6.4-8.2) Albumin 5.1 g/dL (3.4-5.0) Albumin/Globulin Ratio 1.3 (1.0-1.7) Salicylates Level < 2.8 mg/dL (2.8-20.0) Salicylate Last Dose Date Unk Salicylate Last Dose Time Unk Acetaminophen Level < 2 mcg/ml (10-30) Acetaminophen Last Dose Date Unk Acetaminophen Last Dose Time Unk Ethyl Alcohol Level < 10 mg/dL (0-10) Urine Collection Type Void Urine Color Dk yellow Urine Clarity Clear Urine pH 5.5 Urine Specific [facility] >=1.030 Urine Protein 30 mg/dL (NEG-TRACE) Urine Glucose (UA) Negative mg/dL (NEG) Urine Ketones (Stick) 15 mg/dL (NEG) Urine Blood Negative (NEG) Urine Nitrite Negative (NEG) Urine Bilirubin Small (NEG) Urine Urobilinogen Dipstick 1.0 mg/dL (0.2 mg/dL) Urine Leukocyte Esterase Negative (NEG) Urine RBC 0 /HPF (0-2) Urine WBC 0 /HPF (0-4) Urine Squamous Epithelial Cells Occ /LPF Urine Bacteria 0 /HPF (0-FEW) Urine Hyaline Casts Occasional /HPF Urine Mucus Marked /LPF Urine Opiates Screen Neg (NEG) Urine Methadone Screen Neg (NEG) Urine Barbiturates Neg (NEG) Urine Phencyclidine Screen Neg (NEG) Urine Amphetamine/Methamphetamine Neg (NEG) Urine Benzodiazepines Screen Neg (NEG) Urine Cocaine Screen Neg (NEG) Urine Cannabinoids Screen Pos (NEG) Urine Ethyl Alcohol Neg (NEG) White Blood Count 8.9 x10^3/uL (4.0-11.0) Red Blood Count 5.86 x10^6/uL (4.30-5.70) Hemoglobin 16.3 g/dL (13.0-17.5) Hematocrit 48.8 % (39.0-53.0) Mean Corpuscular Volume 83 fL (79-100) Mean Corpuscular Hemoglobin 28 pg (25-35) Mean Corpuscular Hemoglobin Concent 33 g/dL (31-37) Red Cell Distribution Width 12.7 % (11.5-14.5) Platelet Count 164 x10^3/uL (140-400) Neutrophils (%) (Auto) 62 % (31-73) Lymphocytes (%) (Auto) 27 % (24-48) Monocytes (%) (Auto) 10 % (0-9) Eosinophils (%) (Auto) 0 % (0-3) Basophils (%) (Auto) 0 % (0-3) Neutrophils # (Auto) 5.6 x10^3/uL (1.8-7.7) Lymphocytes # (Auto) 2.4 x10^3/uL (1.0-4.8) Monocytes # (Auto) 0.9 x10^3/uL (0.0-1.1) Eosinophils # (Auto) 0.0 x10^3/uL (0.0-0.7) Basophils # (Auto) 0.0 x10^3/uL (0.0-0.2) Laboratory Tests Test 10/29/18 09:10 Sodium Level 143 mmol/L (136-145) Potassium Level 3.6 mmol/L (3.5-5.1) Chloride Level 105 mmol/L (98-107) Carbon Dioxide Level 29 mmol/L (21-32) Anion Gap 9 (6-14) Blood Urea Nitrogen 9 mg/dL (8-26) Creatinine 1.2 mg/dL (0.7-1.3) Estimated GFR (Cockcroft-Gault) 92.5 Glucose Level 104 mg/dL (70-99) Calcium Level 8.9 mg/dL (8.5-10.1) Allergies Allergies Coded Allergies Type Severity Reaction Last Updated Verified No Known Drug Allergies 10/28/18 No Disposition/Orders: Other (D/C TO OSH) Patient Instructions D/C PLANNING 37 MIN QUETA CARLTON MD Oct 29, 2018 12:37
[2018-10-29] MEDS ORDERED: MULT1TAB52 PO (12:38)
--- NOTE | 2018-10-29 12:40 | SNU/HH DC ---
DISCHARGE ORDERS DISCHARGE INFORMATION: FINAL DIAGNOSIS Problems Medical Problems: (1) Altered mental status Status: Acute (2) Psychosis Status: Acute CONDITION ON DISCHARGE: Guarded CODE STATUS: Code Status: Full DETENTION: SNF STAY <30 DAYS: No HOSPICE: HOSPICE: No HOSPICE EVAL & TREAT: No LTAC: ADMIT TO LTAC: No POST DISCHARGE ORDERS: WEIGHT BEARING STATUS: Full weight bearing DIET AFTER DISCHARGE: Regular CHECKS AFTER DISCHARGE: CHECKS AFTER DISCHARGE: Check blood press - daily FOLLOW-UP: PHYSICIAN FOLLOW-UP: ADMIT TO [facility] TODAY, AMBULANCE TREATMENT/EQUIPMENT ORDERS: ADAPTIVE EQUIPMENT NEEDED: None DISCHARGE MEDICATIONS: Home Meds Active Scripts Multivitamin (MULTIVITAMINS) 1 Each Tablet, 1 TAB PO DAILY for SUPPLEMENT, #90 TAB 3 Refills Prov:QUETA CARLTON MD 10/29/18 QUETA CARLTON MD Oct 29, 2018 12:40
--- NOTE | 2018-10-29 13:32 | NUR ---
Report called to Zev at [facility]. Report covered patient satus, current medication and level of orientation. Will continue to monitor patient until transport arrives.
[2018-10-29] MEDS: ENOXAPARIN 40 MG/0.4 ML SYRINGE. SQ SCH (13:39)
--- NOTE | 2018-10-29 13:56 | NUR ---
Discharge Note: BEREKET MACK Discharge instructions and discharge home medications reviewed with Other facility and a copy given. All questions have been answered and understanding verbalized. The following instructions and handouts were given: discharge report. Discontinued lines and drains: Peripheral IV discontinued intact. Patient discharged to [facility] with Ambulance Personnel via [facility]
--- NOTE | 2018-10-29 14:55 | NUR ---
Late note: SW following pt. Pt has been accepted OSH, orders faxed and SW arranged transportation via [facility] (approved by admin). Pt's mother, notified and is provided with contact info for OSH. Discussed with FABIANO.
== END 2018-10-29 14:01 | DRG 92 ==
LOC: ER 11:22 → EDBD 13:07 → ED HOLD 13:07 → 5 NORTH 17:38
PROVIDERS: ADMIT Internal Medicine; ATTEND Internal Medicine
DX: G92 Toxic encephalopathy (principal); F23 Brief psychotic disorder; F31.9 Bipolar disorder, unspecified; F12.10 Cannabis abuse, uncomplicated
CPT/HCPCS: 36415; 70450; 71045; 80048; 80053; 80307; 80329; 81001; 83735; 85025; 93005; G0480; J1630; J3486; J7030; G0378